=== PATIENT | female | born 1935 | race Two or more races ===

== ENCOUNTER → 2024-05-23 | Outpatient (CLI) | payer MEDICARE, MEDICAID, SELFPAY ==
--- NOTE | 2024-05-23 10:30 | XR_ITS ---
Examination: Abdomen sonogram, complete Date and time of exam May 23 2024 1113 hours INDICATIONS: Elevated liver function tests on laboratory examination 2 months ago. Technique: Multiple real-time grayscale transabdominal sonographic images of the abdomen have been obtained. 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
== END | disposition home or self-care (01) ==
PROVIDERS: PCP Physician Assistant; Referring Provider Physician Assistant; Visit Provider Physician Assistant
DX: K76.9 Liver disease, unspecified (principal); N28.89 Other specified disorders of kidney and ureter
CPT/HCPCS: 76700